=== PATIENT | female | born 1970 | race Asian ===

== ENCOUNTER 2017-10-31 13:01 | Emergency (ER) | payer OTHER ==
[2017-10-31 13:37] LABS: BASOPHILS % (AUTO) 0.7 %; EOSINOPHILS % (AUTO) 0.5 %; HGB - HEMOGLOBIN 13.3 g/dL (12.0-16.0); LYMPHOCYTES # (AUTO) 1.4 10^3/uL (1.5-3.5); LYMPHOCYTES % (AUTO) 22.9 %; MEAN CORPUSCULAR HEMOGLOBIN 31.3 pg (27.0-31.0); MEAN CORPUSCULAR VOLUME 89.6 fL (81.0-99.0); MEAN PLATELET VOLUME 7.4 fL (7.9-10.8); MONOCYTES # (AUTO) 0.4 10^3/uL (0.0-1.0); MONOCYTES % (AUTO) 6.6 %; NEUTROPHILS # (AUTO) 4.2 10^3/uL (1.5-6.6); NEUTROPHILS % (AUTO) 69.3 %; PLT - PLATELET COUNT 270 10^3/uL (130-450); RED BLOOD COUNT 4.23 10^6/uL (4.20-5.40); RED CELL DISTRIBUTION WIDTH 12.3 % (12.0-15.0); WHITE BLOOD COUNT 6.1 x10^3/uL (4.8-10.8)
[2017-10-31 13:38] LABS: BILIRUBIN,URINE NEGATIVE (NEGATIVE); GLUCOSE, URINE (UA) NEGATIVE (NEGATIVE); KETONES,URINE (UA) NEGATIVE (NEGATIVE); LEUKOCYTE ESTERASE, URINE NEGATIVE (NEGATIVE); NITRITE,URINE NEGATIVE (NEGATIVE); OCCULT BLOOD,URINE TRACE-INTA (NEGATIVE); PROTEIN,URINE NEGATIVE (NEGATIVE); UROBILINOGEN,URINE 0.2 (NORMAL) E.U./dL (NORMAL)
[2017-10-31 13:42] LABS: CLARITY,URINE CLEAR (CLEAR); HCG UR QUAL NEGATIVE
[2017-10-31 13:53] LABS: ALBUMIN 4.2 g/dL (3.2-5.5); ALBUMIN/GLOBULIN RATIO 1.2 (1.0-2.2); BILIRUBIN,TOTAL 1.2 mg/dL (0.2-1.0); CALCIUM 8.9 mg/dL (8.5-10.3); CREATININE 0.6 mg/dL (0.4-1.0); TOTAL PROTEIN 7.7 g/dL (6.7-8.2)
[2017-10-31] MEDS ORDERED: LIDOCAINE VISCOUS 2% 15 ML UDC MM STA (13:53)
[2017-10-31] MEDS ORDERED: MAG HYDROX/AL HYDROX/SIMETH 30 ML UDC PO STA (13:53)
--- NOTE | 2017-10-31 13:55 | ED Physician Documentation ---
PD HPI ABD PAIN - Stated complaint Stated Complaint: BACK/ABD PX - Chief complaint Chief Complaint: Abd Pain - History obtained from History obtained from: Patient - History of Present Illness Timing - details: Other (3 days LUQ pain and epigastric pain rad to back, increased p eating. Nauseous, but no vomiting. Nl BMs without blood. No abd surgeries. No urinary complaints.) Review of Systems Ten Systems: 10 systems reviewed and negative Constitutional: denies: Fever, Chills Throat: denies: Dental pain / toothache, Sore throat Cardiac: denies: Chest pain / pressure, Palpitations Respiratory: denies: Dyspnea, Cough PD PAST MEDICAL HISTORY - Past Surgical History Past Surgical History: No - Present Medications Home Medications: Ambulatory Orders Medication Instructions Recorded Confirmed Omeprazole [PriLOSEC] 20 mg PO DAILY #14 capsule 10/31/17 - Allergies Allergies/Adverse Reactions: Allergies Allergy/AdvReac Type Severity Reaction Status Date / Time No Known Drug Allergies Allergy Verified 10/31/17 13:12 - Social History Does the pt smoke?: No Smoking Status: Never smoker Does the pt drink ETOH?: Yes Does the pt have substance abuse?: No PD ED PE NORMAL - Vitals Vital signs reviewed: Yes - General General: Alert and oriented X 3, No acute distress - Neck Neck: Supple, no meningeal sign, No bony TTP - Cardiac Cardiac: RRR, No murmur - Respiratory Respiratory: No respiratory distress, Clear bilaterally - Abdomen Abdomen: Normal bowel sounds, Soft, Non tender - Extremities Extremities: No edema, No calf tenderness / cord - Neuro Neuro: Alert and oriented X 3, Normal speech - Psych Psych: Normal mood, Normal affect Results - Vitals Vitals: Vital Signs - 24 hr 10/31/17 13:09 Temperature 37.2 C Heart Rate 71 Respiratory 16 Rate Blood Pressure 117/78 O2 Saturation 96 Oxygen O2 Source Room air - EKG (time done) 1412 Rate: Rate (enter#) (62) Rhythm: NSR [place]: Normal Intervals: Normal MA QRS: Normal Ischemia: Normal ST segments Computer interpretation: Agree with computer - Labs Labs: Laboratory Tests 10/31/17 10/31/17 10/31/17 13:19 13:30 13:30 WBC 6.1 RBC 4.23 Hgb 13.3 Hct 37.9 MCV 89.6 MCH 31.3 H MCHC 35.0 RDW 12.3 Plt Count 270 MPV 7.4 L Neut # 4.2 Lymph # 1.4 L [place] # 0.4 Eos # 0.0 Baso # 0.0 Absolute Nucleated RBC 0.00 Nucleated RBC % 0.0 Sodium 137 Potassium 3.7 Chloride 105 Carbon Dioxide 28 Anion Gap 4.0 L BUN 11 Creatinine 0.6 Estimated GFR (MDRD) 107 Glucose 103 H Calcium 8.9 Total Bilirubin 1.2 H AST 18 ALT 12 Alkaline Phosphatase 58 Total Protein 7.7 Albumin 4.2 Globulin 3.5 Albumin/Globulin Ratio 1.2 Lipase 20 L Urine Color YELLOW Urine Clarity CLEAR Urine pH 7.0 Ur Specific [place] <=1.005 Urine Protein NEGATIVE Urine Glucose (UA) NEGATIVE Urine Ketones NEGATIVE Urine Occult Blood TRACE-INTA Urine Nitrite NEGATIVE Urine Bilirubin NEGATIVE Urine Urobilinogen 0.2 (NORMAL) Ur Leukocyte Esterase NEGATIVE Ur Microscopic Review NOT INDICATED Urine Culture Comments NOT INDICATED Urine HCG, Qual NEGATIVE PD MEDICAL DECISION MAKING - ED course ED course: 47-year-old woman with upper abdominal pain, seems most consistent with gastritis. That said she had no change with a GI cocktail. On recheck she had mild tenderness, especially the left lower quadrant. I recommended a CT scan and she wanted to call her insurance company first to make sure was covered. After that she refused a CT and understands she should return anytime if worsening or if not better in a short timeframe. Departure - Departure Disposition: 01 Home, Self Care Clinical Impression: Abdominal pain Qualifiers: Abdominal location: generalized Qualified Code(s): R10.84 - Generalized abdominal pain Condition: Good Record reviewed to determine appropriate education?: Yes Instructions: ED Pelvic Pain [facility] Prescriptions: Omeprazole [PriLOSEC] 20 mg PO DAILY #14 capsule Comments: Return if worse or for new symptoms, especially fever, vomiting. Or if not better in 24 hours.
[2017-10-31 15:14] VITALS: BP 125/80
== END 2017-10-31 15:13 | disposition home or self-care (01) ==
LOC: ED 13:01
DX: R10.84 Generalized abdominal pain (principal)
CPT/HCPCS: 36415; 80053; 81003; 81025; 83690; 85025; 93005; 99283; A9270; 81001; 87086

== ENCOUNTER 2017-11-01 15:06 | Emergency (ER) | payer OTHER ==
[2017-11-01 15:16] VITALS: BP 114/79
--- NOTE | 2017-11-01 16:35 | ED Physician Documentation ---
PD HPI ABD PAIN - Stated complaint Stated Complaint: ABD/BACK PX - Chief complaint Chief Complaint: Abd Pain - History obtained from History obtained from: Patient - History of Present Illness Timing - onset: Other (She was seen by me yesterday for at that time 3 days of epigastric and left upper quadrant pain, she had a benign exam and pretty normal labs. She refused a CT scan at that time and had no help with a GI cocktail. She returns today because the pain is a little worse and is moved out to the flanks a little bit. No increase in the nausea. She does not feel hungry. She checked with her insurance and found that they will probably cover CT scan and would like to go ahead with that test today.) Review of Systems Ten Systems: 10 systems reviewed and negative Constitutional: denies: Fever, Chills Cardiac: denies: Chest pain / pressure, Palpitations Respiratory: denies: Dyspnea, Cough PD PAST MEDICAL HISTORY - Past Medical History Past Medical History: No - Past Surgical History Past Surgical History: No - Present Medications Home Medications: Ambulatory Orders Medication Instructions Recorded Confirmed Omeprazole [PriLOSEC] 20 mg PO DAILY #14 capsule 10/31/17 - Allergies Allergies/Adverse Reactions: Allergies Allergy/AdvReac Type Severity Reaction Status Date / Time No Known Drug Allergies Allergy Verified 11/01/17 15:16 - Social History Does the pt smoke?: No Smoking Status: Never smoker Does the pt drink ETOH?: Yes Does the pt have substance abuse?: No - Family History Family history: reports: Non contributory - Immunizations Immunizations are current?: Yes - POLST Patient has POLST: No PD ED PE NORMAL - Vitals Vital signs reviewed: Yes - General General: Alert and oriented X 3, No acute distress - Cardiac Cardiac: RRR, No murmur - Respiratory Respiratory: No respiratory distress, Clear bilaterally - Abdomen Abdomen: Normal bowel sounds, Soft, Non tender - Derm Derm: Normal color, Warm and dry - Extremities Extremities: No edema, No calf tenderness / cord - Neuro Neuro: Alert and oriented X 3, Normal speech - Psych Psych: Normal mood, Normal affect Results - Vitals Vitals: Vital Signs - 24 hr 11/01/17 15:13 Temperature 37.6 C H Heart Rate 70 Respiratory 18 Rate Blood Pressure 114/79 O2 Saturation 98 Oxygen O2 Source Room air - Labs Labs: Laboratory Tests 02/06/1011/01/17 11/01/17 16:48 16:48 16:53 WBC 5.3 RBC 4.47 Hgb 13.5 Hct 40.2 MCV 90.0 MCH 30.2 MCHC 33.5 RDW 12.5 Plt Count 291 MPV 7.4 L Neut # 3.7 Lymph # 1.3 L [place] # 0.3 Eos # 0.0 Baso # 0.0 Absolute Nucleated RBC 0.00 Nucleated RBC % 0.1 Sodium 138 Potassium 3.7 Chloride 101 Carbon Dioxide 24 Anion Gap 13.0 BUN 10 Creatinine 0.6 Estimated GFR (MDRD) 107 Glucose 92 Calcium 9.2 Total Bilirubin 0.8 AST 19 ALT 14 Alkaline Phosphatase 62 Total Protein 7.7 Albumin 4.2 Globulin 3.5 Albumin/Globulin Ratio 1.2 Lipase 16 L Urine Color YELLOW Urine Clarity CLEAR Urine pH 6.0 Ur Specific [place] 1.010 Urine Protein NEGATIVE Urine Glucose (UA) NEGATIVE Urine Ketones TRACE Urine Occult Blood TRACE-INTA Urine Nitrite NEGATIVE Urine Bilirubin NEGATIVE Urine Urobilinogen 0.2 (NORMAL) Ur Leukocyte Esterase NEGATIVE Ur Microscopic Review NOT INDICATED Urine Culture Comments NOT INDICATED - Rads (name of study) CT A/P Radiology: EMP read contemporaneously (4.6 cm right ovarian cyst with some free fluid) PD MEDICAL DECISION MAKING - ED course ED course: 47-year-old woman returns with continued abdominal pain having previously refused CT scanning and this is done tonight showing a hemorrhagic ovarian cyst with small amount of free fluid. Labs continue to be benign. 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 Departure - Departure Disposition: 01 Home, Self Care Clinical Impression: Cyst of ovary Qualifiers: Laterality: right Qualified Code(s): N83.201 - Unspecified ovarian cyst, right side Condition: Good Record reviewed to determine appropriate education?: Yes Instructions: ED Pelvic Pain [facility] Comments: Ibuprofen as needed for pain, follow-up with your family doctor or nuclear physics teacher. They may want to do an ultrasound in about 6 weeks to make sure that the right ovarian cyst is resolved. Return if worse.
[2017-11-01 16:54] LABS: BASOPHILS % (AUTO) 0.6 %; EOSINOPHILS % (AUTO) 0.6 %; HGB - HEMOGLOBIN 13.5 g/dL (12.0-16.0); LYMPHOCYTES # (AUTO) 1.3 10^3/uL (1.5-3.5); LYMPHOCYTES % (AUTO) 23.5 %; MEAN CORPUSCULAR HEMOGLOBIN 30.2 pg (27.0-31.0); MEAN CORPUSCULAR HGB CONC 33.5 g/dL (32.0-36.0); MEAN PLATELET VOLUME 7.4 fL (7.9-10.8); MONOCYTES # (AUTO) 0.3 10^3/uL (0.0-1.0); MONOCYTES % (AUTO) 5.6 %; NEUTROPHILS # (AUTO) 3.7 10^3/uL (1.5-6.6); NEUTROPHILS % (AUTO) 69.7 %; PLT - PLATELET COUNT 291 10^3/uL (130-450); RED BLOOD COUNT 4.47 10^6/uL (4.20-5.40); RED CELL DISTRIBUTION WIDTH 12.5 % (12.0-15.0); WHITE BLOOD COUNT 5.3 x10^3/uL (4.8-10.8)
[2017-11-01 17:00] LABS: BILIRUBIN,URINE NEGATIVE (NEGATIVE); GLUCOSE, URINE (UA) NEGATIVE (NEGATIVE); KETONES,URINE (UA) TRACE mg/dL (NEGATIVE); LEUKOCYTE ESTERASE, URINE NEGATIVE (NEGATIVE); NITRITE,URINE NEGATIVE (NEGATIVE); OCCULT BLOOD,URINE TRACE-INTA (NEGATIVE); PROTEIN,URINE NEGATIVE (NEGATIVE); UROBILINOGEN,URINE 0.2 (NORMAL) E.U./dL (NORMAL)
[2017-11-01 17:01] LABS: CLARITY,URINE CLEAR (CLEAR)
[2017-11-01 17:05] LABS: ALBUMIN 4.2 g/dL (3.2-5.5); ALBUMIN/GLOBULIN RATIO 1.2 (1.0-2.2); BILIRUBIN,TOTAL 0.8 mg/dL (0.2-1.0); CALCIUM 9.2 mg/dL (8.5-10.3); CREATININE 0.6 mg/dL (0.4-1.0); TOTAL PROTEIN 7.7 g/dL (6.7-8.2)
[2017-11-01] MEDS ORDERED: IOPAMIDOL-300 100 ML VIAL ONE (17:08)
[2017-11-01] MEDS ORDERED: IOPAMIDOL-300 100 ML VIAL IVP ONE (17:52)
--- NOTE | 2017-11-01 18:27 | CT Preliminary Report ---
Exam: CT ABDOMEN/PELVIS W/ IMPRESSION: 1. 1.3 cm right ovarian corpus luteum. 4.6 cm probable right ovarian hemorrhagic cyst with intermedia te fluid in the pelvis. Uterus, both adnexa and left ovary are otherwise normal. 2. Diverticulosis without inflammation. Appendix not seen. No bowel obstruction. [facility] SITE ID: [id number]
--- NOTE | 2017-11-01 18:54 | CT Report ---
EXAM: CT ABDOMEN AND PELVIS EXAM DATE: 11/01/2017 05:49 PM. CLINICAL HISTORY: IV only, upper abdominal pain. COMPARISONS: None. TECHNIQUE: Routine helical CT imaging was performed through the abdomen and pelvis. IV contrast: 100 mL Isovue 300. Enteric contrast: No. Reconstructions: Coronal and sagittal. In accordance with CT protocol optimization, one or more of the following dose reduction techniques w ere utilized for this exam: automated exposure control, adjustment of mA and/or KV based on patient s ize, or use of iterative reconstructive technique. FINDINGS: Lung Bases: Unremarkable. Liver: No enhancing mass. Multiple low density cystic structures scattered throughout both liver lobe s. Portal vein is patent. No intrahepatic bile duct dilation. Gallbladder/Bile Ducts: Unremarkable. Spleen: Normal. Pancreas: Normal. Adrenal Glands: Normal. Kidneys: Normal. No masses or hydronephrosis. Peritoneal Cavity/Bowel: Normal. No free fluid, free air or adenopathy. No masses or acute inflammato ry process. Appendix not seen. No right lower quadrant inflammation. Occasional colonic diverticula. Pelvic Organs: 1.3 cm right adnexal/ovarian cystic structure or peripheral enhancement most likely re presents a corpus kidney. 2.2 x 1.8 x 4.6 cm low to intermediate density right ovarian cyst. Right ad nexa, uterus, and left ovary and adnexa are otherwise normal. Normal bladder. Small amount of pelvic free fluid. No mass or adenopathy. Vasculature: No aneurysms or other significant abnormality. Bones: No significant abnormality. Other: None. IMPRESSION: 1. 1.3 cm right ovarian corpus luteum. 4.6 cm probable right ovarian hemorrhagic cyst with intermedia te fluid in the pelvis. Uterus, both adnexa and left ovary are otherwise normal. 2. Diverticulosis without inflammation. Appendix not seen. No bowel obstruction. [facility] Referring Provider Line: [phone] SITE ID: [id number]
== END 2017-11-01 18:42 | disposition home or self-care (01) ==
LOC: ED 15:06
DX: N83.201 Unspecified ovarian cyst, right side (principal)
CPT/HCPCS: 36415; 74177; 80053; 81003; 83690; 85025; 99283; 99284; Q9967; 81001; 87086

== ENCOUNTER 2017-11-18 20:47 | Outpatient (CLI) | payer OTHER ==
--- NOTE | 2017-11-19 10:45 | Ultrasound Report ---
PELVIC ULTRASOUND: 11/18/2017 CLINICAL INDICATION: Follow up right ovarian cyst. TECHNIQUE: Transabdominal pelvic ultrasound performed for global evaluation. Transvaginal pelvic ultrasound performed for detailed evaluation. Real-time scanning performed and static images obtained. COMPARISON: CT 11/01/2017. FINDINGS: The uterus is anteverted, measuring 7.5 x 4.7 x 3.3 cm. The endometrium measures 4 mm. No focal myometrial lesion is appreciated. The right ovary measures 2.7 x 2.0 x 1.5 cm, and demonstrates a follicle. The left ovary measures 1.8 x 1.2 x 0.8 cm, and demonstrates a follicle. Previously noted free fluid has resolved. IMPRESSION: NORMAL PELVIC ULTRASOUND. TD: 11/19/2017 10:43
== END 2017-11-18 20:48 | disposition home or self-care (01) ==
LOC: DI 20:47
PROVIDERS: ATTEND Registered Nurse
DX: D27.0 Benign neoplasm of right ovary (principal)
CPT/HCPCS: 76830; 76856

== ENCOUNTER 2018-03-25 19:57 | Outpatient (CLI) | payer OTHER ==
--- NOTE | 2018-03-27 12:43 | Ultrasound Report ---
Procedure Date: 03/25/2018 Accession Number: [id number] / [id number] Procedure: US - Pelvic w/Transvaginal CPT Code: FULL RESULT: EXAM: Pelvic w/Transvaginal DATE: 03/25/2018 8:37 PM CLINICAL HISTORY: PELVIC AND PERINEAL PAIN COMPARISON: 11/18/2017 TECHNIQUE: Realtime transabdominal imaging performed to identify the uterus and adnexa and as an overview of other pelvic structures, followed by transvaginal imaging for better assessment of the endometrium and/or adnexa, with static image documentation. FINDINGS: Uterus: 6.8 x 5.6 x 2.9 cm, volume 57 cc. Anteverted position. Normal overall size and echotexture. Masses: None. Endometrium: 3 mm. Normal. Cervix: Unremarkable. Right Ovary/Adnexa: 3.0 x 1.4 x 1.3 cm, volume 3 cc. Normal echotexture. Blood flow is present. No adnexal mass is seen. Left Ovary/Adnexa: 1.7 x 1.7 x 0.8 cm, volume 1 cc. Normal echotexture. Blood flow is present. No adnexal mass is seen. Free Fluid: None. Other: None. IMPRESSION: Normal pelvic ultrasound. No significant interval change. [facility]
== END 2018-03-25 19:58 | disposition home or self-care (01) ==
LOC: DI 19:57
PROVIDERS: ATTEND Registered Nurse
DX: R10.2 Pelvic and perineal pain (principal)
CPT/HCPCS: 76830; 76856

== ENCOUNTER 2018-07-01 08:01 | Outpatient (CLI) | payer OTHER ==
[2018-07-01 09:43] LABS: ALBUMIN 4.2 g/dL (3.2-5.5); ALBUMIN/GLOBULIN RATIO 1.4 (1.0-2.2); BILIRUBIN,TOTAL 1.3 mg/dL (0.2-1.0); CREATININE 0.7 mg/dL (0.4-1.0); TOTAL PROTEIN 7.2 g/dL (6.7-8.2)
[2018-07-01 10:09] LABS: BASOPHILS % (AUTO) 0.9 %; EOSINOPHILS # (AUTO) 0.1 10^3/uL (0.0-0.7); EOSINOPHILS % (AUTO) 1.8 %; HGB - HEMOGLOBIN 13.8 g/dL (12.0-16.0); LYMPHOCYTES # (AUTO) 1.2 10^3/uL (1.5-3.5); LYMPHOCYTES % (AUTO) 29.6 %; MEAN CORPUSCULAR HEMOGLOBIN 30.8 pg (27.0-31.0); MEAN CORPUSCULAR HGB CONC 34.3 g/dL (32.0-36.0); MEAN CORPUSCULAR VOLUME 89.9 fL (81.0-99.0); MEAN PLATELET VOLUME 7.4 fL (7.9-10.8); MONOCYTES # (AUTO) 0.2 10^3/uL (0.0-1.0); MONOCYTES % (AUTO) 5.7 %; NEUTROPHILS # (AUTO) 2.5 10^3/uL (1.5-6.6); PLT - PLATELET COUNT 324 10^3/uL (130-450); RED BLOOD COUNT 4.47 10^6/uL (4.20-5.40); RED CELL DISTRIBUTION WIDTH 12.7 % (12.0-15.0)
[2018-07-01 10:44] LABS: FOLLICLE STIMULATING HORMONE 12.42 mIU/mL; LUTEINIZING HORMONE 3.64 mIU/mL
== END 2018-07-01 08:02 | disposition home or self-care (01) ==
LOC: LAB 08:01
PROVIDERS: ATTEND Registered Nurse
DX: R42 Dizziness and giddiness (principal)
CPT/HCPCS: 36415; 80053; 82670; 82950; 82951; 83001; 83002; 84443; 85025

== ENCOUNTER 2018-07-22 10:53 | Outpatient (CLI) | payer OTHER ==
[2018-07-22 11:33] LABS: BASOPHILS % (AUTO) 0.7 %; EOSINOPHILS # (AUTO) 0.1 10^3/uL (0.0-0.7); EOSINOPHILS % (AUTO) 1.3 %; LYMPHOCYTES # (AUTO) 1.3 10^3/uL (1.5-3.5); MEAN CORPUSCULAR HEMOGLOBIN 31.2 pg (27.0-31.0); MEAN CORPUSCULAR VOLUME 89.3 fL (81.0-99.0); MEAN PLATELET VOLUME 7.6 fL (7.9-10.8); MONOCYTES # (AUTO) 0.3 10^3/uL (0.0-1.0); MONOCYTES % (AUTO) 6.2 %; NEUTROPHILS % (AUTO) 64.8 %; PLT - PLATELET COUNT 300 10^3/uL (130-450); RED BLOOD COUNT 4.47 10^6/uL (4.20-5.40); RED CELL DISTRIBUTION WIDTH 12.9 % (12.0-15.0); WHITE BLOOD COUNT 4.7 x10^3/uL (4.8-10.8)
[2018-07-22 11:49] LABS: ALBUMIN 4.3 g/dL (3.2-5.5); BILIRUBIN,DIRECT 0.1 mg/dL (0.1-0.5); BILIRUBIN,TOTAL 0.8 mg/dL (0.2-1.0); TOTAL PROTEIN 7.3 g/dL (6.7-8.2)
[2018-07-23 11:38] LABS: HEPATITIS A IGM NON-REACTIVE (NON-REACTIVE); HEPATITIS B CORE ANTIBODY IGM NON-REACTIVE (NON-REACTIVE); HEPATITIS B SURFACE ANTIGEN NON-REACTIVE (NON-REACTIVE); HEPATITIS C ANTIBODY NON-REACTIVE (NON-REACTIVE)
== END 2018-07-22 10:54 | disposition home or self-care (01) ==
LOC: LAB 10:53
PROVIDERS: ATTEND Registered Nurse
DX: R53.83 Other fatigue (principal); R94.5 Abnormal results of liver function studies
CPT/HCPCS: 36415; 80074; 80076; 82306; 82728; 85025

== ENCOUNTER 2020-11-04 11:48 | Emergency (ER) | payer OTHER ==
[2020-11-04] MEDS ORDERED: ACETAMINOPHEN 325 MG TABLET PO STA (11:59)
--- NOTE | 2020-11-04 14:33 | XRAY Report ---
PROCEDURE: Pelvis 1 View INDICATIONS: tailbone pain TECHNIQUE: 1 view(s) of the pelvis acquired. COMPARISON: None. FINDINGS: Bones: No fractures or dislocations. No suspicious bony lesions. Soft tissues: Visualized bowel gas pattern is normal. No suspicious soft tissue calcifications. IMPRESSION: No visualized acute fracture or dislocation. However, occult injury cannot be excluded. Recommend short interval imaging follow-up in 7-10 days as clinically indicated for additional evalua tion. Reviewed by: Stephanie Sheikh MD on 11/04/2020 2:32 PM PST Approved by: Stephanie Sheikh MD on 11/04/2020 2:32 PM PST Station ID: [id number]
[2020-11-04] MEDS ORDERED: oxyCODONE 5 MG TABLET PO STA (14:45)
--- NOTE | 2020-11-04 15:24 | CT Report ---
PROCEDURE: PELVIS WO INDICATIONS: Pain. r/o coccyx fracture TECHNIQUE: Noncontrast 3 mm axial sections acquired through the bony pelvis, with coronal and sagittal reformatt ing. For radiation dose reduction, the following was used: automated exposure control, adjustment of mA and/or kV according to patient size. COMPARISON: Pelvic x-ray 11/04/2020 CT abdomen and pelvis 04/22/2020.. FINDINGS: Image quality: Excellent. Bones: No fracture or dislocation. No sclerotic or lytic lesions. Lower lumbar spine mild degenerati ve disc disease and facet arthropathy. Mild bilateral sacroiliac joint osteoarthritis. Soft tissues: Visualized large and small bowel loops have normal caliber. Trace free fluid noted in the cul-de-sac of the pelvis. 3 cm right adnexal cyst. Urinary bladder wall thickness is normal. No l ymphadenopathy based on size criteria. IMPRESSION: No fracture. Reviewed by: Juanita Escudero MD, PhD on 11/04/2020 3:23 PM PST Approved by: Juanita Escudero MD, PhD on 11/04/2020 3:23 PM PST Station ID: [id number]
--- NOTE | 2020-11-04 17:03 | ED Physician Documentation ---
History of Present Illness - Stated complaint Stated Complaint: TAIL BONE PX - Chief complaint Chief Complaint: Back Pain - History obtained from History obtained from: Patient - Additonal information Additional information: 50yF, previously healthy p/w pain over tailbone gradual in onset 2 days ago in the morning, initially mild then gradually increasing in severity to 8/10, constant, nonradiating, aching, worse with sitting on it, without associated symptoms. 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 denies prior hx pilonidal abscess. denies swelling, redness, fevers. denies pain with urination or defecation. denies abd pain, sensory or motor deficits. Review of Systems Ten Systems: 10 systems reviewed and negative Constitutional: denies: Fever, Chills, Myalgias GI: denies: Abdominal Pain, Constipation, Diarrhea, Bloody / black stool : denies: Dysuria, Frequency, Hesitancy, Hematuria Skin: denies: Rash, Lesions, Abrasion (s) Musculoskeletal: reports: Other (+buttock pain over tailbone in the midline). denies: Extremity pain Neurologic: reports: Other (no urinary or fecal incont/retention). 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 : None HEENT: None Psych: None Musculoskeletal: None Derm: None - Past Surgical History Past Surgical History: No - Present Medications Home Medications: Ambulatory Orders Medication Instructions Recorded Confirmed oxyCODONE/ACET 5/325 [Percocet 5 1 each PO Q6H PRN #8 tab 11/04/20 mg/325 mg] - Allergies Allergies/Adverse Reactions: Allergies Allergy/AdvReac Type Severity Reaction Status Date / Time No Known Drug Allergies Allergy Verified 11/04/20 11:57 - Social History Does the pt smoke?: No Smoking Status: Never smoker Does the pt drink ETOH?: Yes Does the pt have substance abuse?: No - Immunizations Immunizations are current?: Yes - POLST Patient has POLST: No PD ED PE NORMAL - Vitals Vital signs reviewed: Yes - General General: Alert and oriented X 3, No acute distress, Well developed/nourished - HEENT HEENT: Atraumatic, PERRL, EOMI - Neck Neck: Supple, no meningeal sign - Cardiac Cardiac: RRR - Respiratory Respiratory: No respiratory distress, Clear bilaterally - Abdomen Abdomen: Non tender, Non distended - Rectal Rectal: Other (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 no hemorrhoids. no fluctuance over coccyx. distal coccyx ttp. no discoloration or deformity. ultrasound pocus without evidence of fluid collection) - Back Back: No spinal TTP (nontender with the exception of tip of coccyx) - Derm Derm: Normal color - Extremities Extremities: No deformity, Other (normal sensation and movement. 2+ BL pulses in upper and LE) - Neuro Neuro: Alert and oriented X 3, No motor deficit, No sensory deficit - Psych Psych: Normal mood, Normal affect Results - Vitals Vitals: Oxygen O2 Source Room air PD MEDICAL DECISION MAKING - ED course ED course: 50-year-old woman with pinpoint coccygeal pain, without evidence of pilonidal abscess on ultrasound [id number]. X-ray and CT show no fluid collection or fracture of the tailbone. Strict return precautions given. Patient is declining pain medication at this time. We will have her follow-up outpatient orthopedics in 1 week for repeat x-ray. Follow-up with your primary doctor. Departure - Departure Disposition: 01 Home, Self Care Clinical Impression: Coccygeal pain, acute Condition: Good Instructions: ED Low Back Pain Injury Prescriptions: oxyCODONE/ACET 5/325 [Percocet 5 mg/325 mg] 1 each PO Q6H PRN #8 tab PRN Reason: Pain Comments: You were seen in the emergency department for pain in your tailbone. It is possible that you have a early pilonidal abscess but I could not see anything on ultrasound. It does not look like you broke your tailbone on x-ray or CT patient have a repeat x-ray in 1 week. Follow-up in clinic. Return to the emergency department if you have any new or worsening symptoms or other concerns. Do not drive while taking percocet. Discharge Date/Time: 11/04/20 17:52
[2020-11-04 17:45] VITALS: BP 114/65
== END 2020-11-04 17:52 | disposition home or self-care (01) ==
LOC: ED 11:48
DX: M53.3 Sacrococcygeal disorders, not elsewhere classified (principal)
CPT/HCPCS: 99284